=== PATIENT | female | born 1945 | race Caucasian/White ===

== ENCOUNTER 2019-12-01 10:49 | Emergency (ER) | payer MEDICARE, SELFPAY ==
--- NOTE | 2019-12-01 10:58 | ED.DENTAL ---
HPI - Dental/Oral General Chief complaint: Dental/Oral Stated complaint: Blisters inside mouth Time Seen by Provider: 12/01/19 10:58 Source: patient and RN notes reviewed History of Present Illness HPI Narrative: Patient is a 74-year-old female who presents the urgent care with complaints of blood blisters to the insides of both cheeks. Patient states that she does use an inhaler but has never had issues in the past with the rash or any oral sores. Patient states she noticed them last night. Denies of ever biting on her cheeks or clenching. States that she wears dentures and does remove them at night. No other acute complaints. No acute distress noted. Patient aware of the plan of care. Some parts of this dictation were generated by voice recognition software and may contain typographical and/or grammatical inaccuracies. Related Data Home Medications Medication Instructions Recorded Confirmed fluoxetine 20 mg PO DAILY 12/01/19 12/01/19 furosemide 40 mg PO DAILY 12/01/19 12/01/19 hydralazine 100 mg PO DAILY 12/01/19 12/01/19 levothyroxine 100 mcg PO DAILY 12/01/19 12/01/19 lisinopril 40 mg PO DAILY 12/01/19 12/01/19 methylphenidate HCl 20 mg PO DAILY 12/01/19 12/01/19 metoprolol succinate 100 mg PO DIRECTED 12/01/19 12/01/19 omeprazole 20 mg PO DIRECTED 12/01/19 12/01/19 potassium chloride 10 meq PO DAILY 12/01/19 12/01/19 warfarin 3 mg PO DAILY 12/01/19 12/01/19 Allergies Allergy/AdvReac Type Severity Reaction Status Date / Time codeine Allergy Intermediate Loss of Unverified 12/01/19 11:09 Consciousness Review of Systems Review of Systems: Narrative: CONSTITUTIONAL: Denies fever, chills, or sweats. EYES: Denies visual changes, redness, or discharge. ENT: Denies rhinorrhea, congestion, sore throat, or otalgia. ORAL: Reports of blood blisters to the inside of both cheeks CARDIOVASCULAR: Denies chest pain, palpitations, or edema. RESPIRATORY: Denies cough or dyspnea. GASTROINTESTINAL: Denies abdominal pain, nausea, vomiting, or diarrhea. GENITOURINARY: Denies dysuria or hematuria. SKIN: Denies rash or itching. MUSCULOSKELETAL: Denies back pain, joint pain, or myalgia. NEUROLOGIC: Denies headache, numbness, or weakness. All other systems reviewed are negative, except as documented in HPI. PMFSH Comments At the time of my signature, I reviewed and agree with the nursing past medical, surgical, social, and family history. There is no relevant family history pertinent to the patient complaint. Exam Narrative: Exam Narrative: GENERAL: This is a well-nourished, well-developed patient, in no apparent distress. HEAD: normocephalic, atraumatic. EYES: PERRL. Sclera clear/white. Vision is grossly intact. EARS: External ears normal NOSE: External nose normal with no obvious nasal discharge, nares without redness, no rhinorrhea. THROAT: Mucous membranes moist, posterior pharynx clear. Approximately 1 cm ecchymotic injury noted to the buccal aspect of the left cheek and 0.5 cm ecchymotic dried blood oral injury noted to the buccal aspect of the right cheek NECK: Neck supple SKIN: warm, intact with no suspicious lesions or rash, good texture and turgor. NEURO: awake, alert, and oriented to person, place and time. There were no obvious focal neurologic abnormalities. EXTREMITIES: No clubbing, cyanosis, or edema. Course Vital Signs Vital signs: Vital Signs Temperature 98.8 F 12/01/19 11:00 Pulse Rate 65 12/01/19 11:00 Respiratory Rate 18 12/01/19 11:00 Blood Pressure 135/45 L 12/01/19 11:00 Pulse Oximetry 98 12/01/19 11:00 Temperature 98.8 F 12/01/19 11:00 Pulse Rate 65 12/01/19 11:00 Respiratory Rate 18 12/01/19 11:00 Blood Pressure 135/45 L 12/01/19 11:00 Pulse Oximetry 98 12/01/19 11:00 Reviewed MDM - Dental/Oral MDM Narrative Medical decision making narrative: Advised the patient not to use any numbing gel to the insides of the cheek such as Orajel or [id number] numb
[2019-12-01 11:00] VITALS: BP 135/45; PULSE 65; RESP 18; TEMP 37.1; O2SAT 98
== END 2019-12-01 11:32 | disposition home or self-care (01) ==
PROVIDERS: Emergency Provider Nurse Practitioner Family
DX: S01.552A Open bite of oral cavity, initial encounter (principal); X58.XXXA Exposure to other specified factors, initial encounter; E78.00 Pure hypercholesterolemia, unspecified; I10 Essential (primary) hypertension; I34.1 Nonrheumatic mitral (valve) prolapse; I25.2 Old myocardial infarction; Z95.0 Presence of cardiac pacemaker; Z86.711 Personal history of pulmonary embolism; K21.9 Gastro-esophageal reflux disease without esophagitis; M19.90 Unspecified osteoarthritis, unspecified site; Z95.2 Presence of prosthetic heart valve
CPT/HCPCS: 99211; G0463

== ENCOUNTER 2020-11-04 11:59 | Emergency (ER) | payer MEDICARE, SELFPAY ==
--- NOTE | ~2020-11-04 | XR_ITS ---
EXAMINATION: XR tibia fibula LT 2V EXAM DATE: 11/04/2020 12:28 INDICATION: Fall Forwards On Leg X2 Week, proximal Anterior Swelling/Pain. TECHNIQUE: Left tibia/fibula frontal and lateral projections obtained and reviewed. There is no prio r study for comparison. FINDINGS: Left tibial and fibular shafts unremarkable. There are no acute fractures or dislocations identified. There is no subcutaneous gas. The soft tissue is unremarkable. There are no radiopaqu e foreign bodies. Large calcaneal posterior spur. IMPRESSION: No acute osseous findings. Reviewed, dictated and finalized at location A. IMPRESSION: No acute osseous findings.
[2020-11-04 12:06] VITALS: BP 148/51; PULSE 88; RESP 16; TEMP 36.3; O2SAT 99
--- NOTE | 2020-11-04 12:06 | ED.LOWEXIN ---
HPI - Extremity Injury (Lower) General Chief Complaint: Extremity Injury, Lower Stated Complaint: Pain and swollen left Leg Time Seen by Provider: 11/04/20 12:06 Source: patient and RN notes reviewed History of Present Illness HPI Narrative: Patient is a 75-year-old female who presents the urgent care with complaints of pain and swelling to the left lower leg. Patient states that she had back surgery on October 24 and on the she was walking down to a sunken living room at a family member's house in [facility]. Patient states she believes she fell onto the left leg. Denies of any loss of consciousness/hitting her head or any other injuries from the fall. Patient states that she does not have any pain to the left lower leg but does notice some increased bruising and redness. Patient states that her niece is a nurse practitioner and placed her on azithromycin yesterday. Patient denies of any fever, chills, nausea, vomiting. Patient is on Coumadin. States that her INR was within normal limits yesterday. No other acute complaints. No acute distress noted. Patient aware of the plan of care. Some parts of this dictation were generated by voice recognition software and may contain typographical and/or grammatical inaccuracies. Related Data Home Medications Medication Instructions Recorded Confirmed fluoxetine 20 mg PO DAILY 12/01/19 12/01/19 furosemide 40 mg PO DAILY 12/01/19 12/01/19 hydralazine 100 mg PO DAILY 12/01/19 12/01/19 levothyroxine 100 mcg PO DAILY 12/01/19 12/01/19 lisinopril 40 mg PO DAILY 12/01/19 12/01/19 methylphenidate HCl 20 mg PO DAILY 12/01/19 12/01/19 metoprolol succinate 100 mg PO DIRECTED 12/01/19 12/01/19 omeprazole 20 mg PO DIRECTED 12/01/19 12/01/19 potassium chloride 10 meq PO DAILY 12/01/19 12/01/19 warfarin 3 mg PO DAILY 12/01/19 12/01/19 azithromycin 250 mg PO DAILY 11/04/20 11/04/20 Allergies Allergy/AdvReac Type Severity Reaction Status Date / Time codeine Allergy Intermediate Loss of Verified 11/04/20 12:17 Consciousness Review of Systems Review of Systems: CONSTITUTIONAL: Denies fever, chills, or sweats. EYES: Denies visual changes, redness, or discharge. ENT: Denies rhinorrhea, congestion, sore throat, or otalgia. CARDIOVASCULAR: Denies chest pain, palpitations, or edema. RESPIRATORY: Denies cough or dyspnea. GASTROINTESTINAL: Denies abdominal pain, nausea, vomiting, or diarrhea. GENITOURINARY: Denies dysuria or hematuria. SKIN: Denies rash or itching. MUSCULOSKELETAL: Reports of swelling and bruising to the left lower leg NEUROLOGIC: Denies headache, numbness, or weakness. All other systems reviewed are negative, except as documented in HPI. PMFSH Comments At the time of my signature, I reviewed and agree with the nursing past medical, surgical, social, and family history. There is no relevant family history pertinent to the patient complaint. Exam Narrative: GENERAL: This is a well-nourished, well-developed patient, in no apparent distress. HEAD: normocephalic, atraumatic. EYES: PERRL. Sclera clear/white. Vision is grossly intact. EARS: External ears normal NOSE: External nose normal with no obvious nasal discharge, nares without redness, no rhinorrhea. THROAT: Mucous membranes moist NECK: Neck supple CARDIOVASCULAR: Regular rate and rhythm with murmur (parts of aortic valve replacement) RESPIRATORY: Clear to auscultation. Breath sounds equal bilaterally. No wheezes, rales, or rhonchi. SKIN: Firm hematoma to the tibial plateau of the left lower leg with ecchymosis extending from the hematoma to the left ankle. Warm, intact with no suspicious lesions or rash, good texture and turgor. NEURO: awake, alert, and oriented to person, place and time. There were no obvious focal neurologic abnormalities. EXTREMITIES: Mild nonpitting edema to the tibial plateau region of the left leg, notable hematoma. Positive strong left pedal pulse with capillary refill less than 2 seconds. Range of
[2020-11-04 12:17] VITALS: BP 148/51; PULSE 88; RESP 16; TEMP 36.3; O2SAT 99
== END 2020-11-04 12:47 | disposition home or self-care (01) ==
PROVIDERS: Emergency Provider Nurse Practitioner Family
DX: S80.12XA Contusion of left lower leg, initial encounter (principal); W01.0XXA Fall on same level from slipping, tripping and stumbling without subsequent striking against object, initial encounter; Z79.01 Long term (current) use of anticoagulants; I25.10 Atherosclerotic heart disease of native coronary artery without angina pectoris; E78.00 Pure hypercholesterolemia, unspecified; I10 Essential (primary) hypertension; I34.9 Nonrheumatic mitral valve disorder, unspecified; I25.2 Old myocardial infarction; Z95.0 Presence of cardiac pacemaker; Z95.2 Presence of prosthetic heart valve; Z86.711 Personal history of pulmonary embolism; K21.9 Gastro-esophageal reflux disease without esophagitis; M19.90 Unspecified osteoarthritis, unspecified site
CPT/HCPCS: 73590; 99213; G0463

== ENCOUNTER 2022-01-08 10:50 | Emergency (ER) | payer MEDICARE, SELFPAY ==
--- NOTE | ~2022-01-08 | XR_ITS ---
XR ankle LT min 3V DATE: 01/08/2022 11:34 INDICATION: Fall down steps on 01/06/2022. Lateral pain. TECHNIQUE: 4 views of left ankle COMPARISON: None FINDINGS: There is moderate lateral soft tissue swelling of the ankle. Osteopenia. No recent fracture or dislocation, periosteal reaction or bone destruction. Moderate plantar and very prominent posterior calcaneal enthesopathy. IMPRESSION: Lateral soft tissue swelling; no fracture or dislocation of the ankle or disruption of th e ankle mortise is detected Plantar and particularly prominent posterior calcaneal enthesopathy Reviewed, dictated and finalized at location A. LAB OPERATOR IMPRESSION: Lateral soft tissue swelling; no fracture or dislocation of the ank le or disruption of the ankle mortise is detected Plantar and particularly prominent posterior calcaneal enthesopathy
--- NOTE | 2022-01-08 10:53 | ED.LOWEXIN ---
HPI - Extremity Injury (Lower) General Chief Complaint: Fall Stated Complaint: Fall Injury/Left Ankle, Knee Time Seen by Provider: 01/08/22 10:53 Source: patient, family and RN notes reviewed History of Present Illness HPI Narrative: patient is a 76-year-old female who presents to urgent care with complaints of left ankle pain and swelling as well as left knee pain. Patient states that she rolled down the basement carpeted stairs on Saturday at her daughter's house. Patient denies any loss of consciousness or hitting her head. States her main concern is the pain in the left ankle and knee. Patient has been ambulating with her cane. Patient has been taking Tylenol for pain. Denies any back or hip pain. No other acute complaints. No acute distress noted. Patient aware of the plan of care. Some parts of this dictation were generated by voice recognition software and may contain typographical and/or grammatical inaccuracies. Related Data Home Medications Medication Instructions Recorded Confirmed fluoxetine 20 mg capsule 20 mg PO DAILY 12/01/19 01/08/22 furosemide 40 mg tablet 40 mg PO DAILY 12/01/19 01/08/22 hydralazine 100 mg tablet 100 mg PO DAILY 12/01/19 01/08/22 levothyroxine 100 mcg tablet 88 mcg PO DAILY 12/01/19 01/08/22 lisinopril 40 mg tablet 40 mg PO DAILY 12/01/19 01/08/22 methylphenidate HCl 20 mg tablet 20 mg PO DAILY 12/01/19 01/08/22 metoprolol succinate 100 mg 100 mg PO DIRECTED 12/01/19 01/08/22 tablet,extended release 24 hr omeprazole 20 mg capsule,delayed 20 mg PO DIRECTED 12/01/19 01/08/22 release potassium chloride 10 mEq 10 meq PO DAILY 12/01/19 01/08/22 tablet,extended release warfarin 3 mg tablet 3 mg PO DAILY 12/01/19 01/08/22 azithromycin 250 mg tablet 250 mg PO DAILY 11/04/20 01/08/22 Allergies Allergy/AdvReac Type Severity Reaction Status Date / Time codeine Allergy Intermediate Loss of Verified 01/08/22 11:11 Consciousness Review of Systems Review of Systems: CONSTITUTIONAL: Denies fever, chills, or sweats. EYES: Denies visual changes, redness, or discharge. ENT: Denies rhinorrhea, congestion, sore throat, or otalgia. CARDIOVASCULAR: Denies chest pain, palpitations, or edema. RESPIRATORY: Denies cough or dyspnea. GASTROINTESTINAL: Denies abdominal pain, nausea, vomiting, or diarrhea. GENITOURINARY: Denies dysuria or hematuria. SKIN: Denies rash or itching. MUSCULOSKELETAL: Reports of left knee and left ankle pain with swelling NEUROLOGIC: Denies headache, numbness, or weakness. All other systems reviewed are negative, except as documented in HPI. PMFSH Comments At the time of my signature, I reviewed and agree with the nursing past medical, surgical, social, and family history. There is no relevant family history pertinent to the patient complaint. Exam Narrative: GENERAL: This is a well-nourished, well-developed patient, in no apparent distress. HEAD: normocephalic, atraumatic. EYES: PERRL. Sclera clear/white. Vision is grossly intact. EARS: External ears normal NOSE: External nose normal with no obvious nasal discharge, nares without redness, no rhinorrhea. THROAT: Mucous membranes moist SKIN: warm, intact with no suspicious lesions or rash, good texture and turgor. NEURO: awake, alert, and oriented to person, place and time. There were no obvious focal neurologic abnormalities. EXTREMITIES: range of motion left lower extremity within normal limits with moderate exacerbated pain on ambulation to the left ankle with mild left lateral malleolus edema without ecchymosis or erythema. Range of motion to the left knee within normal limits without any obvious ecchymosis, erythema or edema. Positive strong left pedal pulse with capillary refill less than 2 seconds. Course Course Level of Care: Express Care Visit Vital Signs Vital signs: Vital Signs Temperature 98.5 F 01/08/22 11:03 Pulse Rate 66 01/08/22 11:03 Respiratory Rate 16 01/08/22 11:03
[2022-01-08 11:03] VITALS: BP 144/118; PULSE 66; RESP 16; TEMP 36.9; O2SAT 100
[2022-01-08 12:06] VITALS: BP 136/47; PULSE 84; O2SAT 97
== END 2022-01-08 12:06 | disposition home or self-care (01) ==
PROVIDERS: Emergency Provider Nurse Practitioner Family
DX: S93.402A Sprain of unspecified ligament of left ankle, initial encounter (principal); W10.9XXA Fall (on) (from) unspecified stairs and steps, initial encounter; I25.10 Atherosclerotic heart disease of native coronary artery without angina pectoris; E78.00 Pure hypercholesterolemia, unspecified; I10 Essential (primary) hypertension; I34.1 Nonrheumatic mitral (valve) prolapse; I25.2 Old myocardial infarction; Z95.0 Presence of cardiac pacemaker; Z95.2 Presence of prosthetic heart valve; Z86.711 Personal history of pulmonary embolism; K21.9 Gastro-esophageal reflux disease without esophagitis; M19.90 Unspecified osteoarthritis, unspecified site
CPT/HCPCS: 73610; 99213; G0463

== ENCOUNTER 2022-02-21 11:11 | Emergency (ER) | payer MEDICARE, SELFPAY ==
--- NOTE | 2022-02-21 11:16 | ED.SKABFB ---
HPI - Skin/Abscess/Foreign Bdy General Chief complaint: Skin/Abscess/Foreign Body Stated complaint: Left Knee/Skin Problem Time Seen by Provider: 02/21/22 11:16 Source: patient and RN notes reviewed History of Present Illness HPI narrative: patient is a 76-year-old female who presents to urgent care with complaints of an itchy blistering rash behind the left knee and on the left ankle. Patient states she noticed it 2 days ago. Patient has not been anything [id number] for her symptoms. No other acute complaints. No acute distress noted. Patient aware of the plan of care. Some parts of this dictation were generated by voice recognition software and may contain typographical and/or grammatical inaccuracies. Related Data Home Medications Medication Instructions Recorded Confirmed fluoxetine 20 mg capsule 20 mg PO DAILY 12/01/19 02/21/22 furosemide 40 mg tablet 40 mg PO DAILY 12/01/19 02/21/22 hydralazine 100 mg tablet 100 mg PO DAILY 12/01/19 02/21/22 levothyroxine 100 mcg tablet 88 mcg PO DAILY 12/01/19 02/21/22 lisinopril 40 mg tablet 40 mg PO DAILY 12/01/19 02/21/22 methylphenidate HCl 20 mg tablet 20 mg PO DAILY 12/01/19 02/21/22 metoprolol succinate 100 mg 100 mg PO DIRECTED 12/01/19 02/21/22 tablet,extended release 24 hr omeprazole 20 mg capsule,delayed 20 mg PO DIRECTED 12/01/19 02/21/22 release potassium chloride 10 mEq 10 meq PO DAILY 12/01/19 02/21/22 tablet,extended release warfarin 3 mg tablet 3 mg PO DAILY 12/01/19 02/21/22 azithromycin 250 mg tablet 250 mg PO DAILY 11/04/20 01/08/22 Allergies Allergy/AdvReac Type Severity Reaction Status Date / Time codeine Allergy Intermediate Loss of Verified 02/21/22 11:20 Consciousness Review of Systems Review of Systems: CONSTITUTIONAL: Denies fever, chills, or sweats. EYES: Denies visual changes, redness, or discharge. ENT: Denies rhinorrhea, congestion, sore throat, or otalgia. CARDIOVASCULAR: Denies chest pain, palpitations, or edema. RESPIRATORY: Denies cough or dyspnea. GASTROINTESTINAL: Denies abdominal pain, nausea, vomiting, or diarrhea. GENITOURINARY: Denies dysuria or hematuria. SKIN: Reports of a blistery itchy painful rash on left knee MUSCULOSKELETAL: Denies back pain, joint pain, or myalgia. NEUROLOGIC: Denies headache, numbness, or weakness. All other systems reviewed are negative, except as documented in HPI. PMFSH Comments At the time of my signature, I reviewed and agree with the nursing past medical, surgical, social, and family history. There is no relevant family history pertinent to the patient complaint. Exam Narrative: GENERAL: This is a well-nourished, well-developed patient, in no apparent distress. HEAD: normocephalic, atraumatic. EYES: PERRL. Sclera clear/white. Vision is grossly intact. EARS: External ears normal NOSE: External nose normal with no obvious nasal discharge, nares without redness, no rhinorrhea. THROAT: Mucous membranes moist NECK: Neck supple SKIN: vesicular erythemic pruritic dermatitis to the posterior left knee and medial left malleolus NEURO: awake, alert, and oriented to person, place and time. There were no obvious focal neurologic abnormalities. EXTREMITIES: No clubbing, cyanosis, or edema. Course Course Level of Care: Express Care Visit Vital Signs Vital signs: Vital Signs Temperature 97.6 F 02/21/22 11:28 Pulse Rate 65 02/21/22 11:28 Respiratory Rate 16 02/21/22 11:28 Blood Pressure 92/53 L 02/21/22 11:28 Pulse Oximetry 98 02/21/22 11:28 Oxygen Delivery Room Air 02/21/22 11:28 Temperature 97.6 F 02/21/22 11:30 Pulse Rate 65 02/21/22 11:30 Respiratory Rate 16 02/21/22 11:30 Blood Pressure 92/53 L 02/21/22 11:30 Pulse Oximetry 98 02/21/22 11:30 Oxygen Delivery Room Air 02/21/22 11:30 reviewed MDM - Skin/Abscess/Foreign Bdy MDM Narrative Medical decision making narrative: explained to the patient that she has shingles.
[2022-02-21 11:28] VITALS: BP 92/53; PULSE 65; RESP 16; TEMP 36.4; O2SAT 98
[2022-02-21 11:30] VITALS: BP 92/53; PULSE 65; RESP 16; TEMP 36.4; O2SAT 98
== END 2022-02-21 11:41 | disposition home or self-care (01) ==
PROVIDERS: Emergency Provider Nurse Practitioner Family
DX: B02.9 Zoster without complications (principal)
CPT/HCPCS: 99213; G0463

== ENCOUNTER 2023-02-02 11:37 | Emergency (ER) | payer MEDICARE, SELFPAY ==
[2023-02-02 11:43] VITALS: BP 90/33; PULSE 77; RESP 20; TEMP 35.5; O2SAT 93
[2023-02-02 11:51] VITALS: BP 93/31
--- NOTE | 2023-02-02 12:04 | ED.GENADULT ---
HPI - General Adult General Chief complaint: Shortness of Breath/Dyspnea Stated complaint: Shortness Of Breath/Diarrhea Source: patient, RN notes reviewed and old records reviewed Mode of arrival: ambulatory Limitations: no limitations History of Present Illness HPI narrative: 77-year-old female presents to [facility] with complaints cough congestion myalgia for 7 days, with diarrhea this started 5 days ago. Patient denies abdominal pain, patient denies chest pain. Patient noted to be hypotensive in triage. Patient states has diarrhea after every meal. patient states to COVID test on that was negative MD complaint: diarrhea Related Data Home Medications Medication Instructions Recorded Confirmed fluoxetine 20 mg capsule 20 mg PO DAILY 12/01/19 02/02/23 furosemide 40 mg tablet 20 mg PO DAILY 12/01/19 02/02/23 hydralazine 100 mg tablet 100 mg PO BID 12/01/19 02/02/23 methylphenidate HCl 20 mg tablet 20 mg PO BID 12/01/19 02/02/23 metoprolol succinate 100 mg 100 mg PO DAILY 12/01/19 02/02/23 tablet,extended release 24 hr omeprazole 20 mg capsule,delayed 20 mg PO BID 12/01/19 02/02/23 release potassium chloride 10 mEq 20 meq PO DAILY 12/01/19 02/02/23 tablet,extended release warfarin 3 mg tablet 3 mg PO DAILY 12/01/19 02/02/23 acetaminophen 325 mg tablet 650 mg PO Q6H PRN Pain (Scale 02/02/23 02/02/23 Score 7-10) albuterol sulfate 90 mcg/actuation 2 puff inhalation QID PRN 02/02/23 02/02/23 aerosol inhaler Shortness Of Breath Or Wheezing diclofenac sodium 1 % topical gel 2 g topical DAILY 02/02/23 02/02/23 levothyroxine 88 mcg tablet 88 mcg PO DAILY 02/02/23 02/02/23 vitamins A,C,K-pbgl-onlufa 2,148 2 tablet PO DAILY 02/02/23 02/02/23 mcg-113 mg-45 mg-17.4 mg tablet (PreserVision AREDS) Allergies Allergy/AdvReac Type Severity Reaction Status Date / Time codeine Allergy Severe Loss of Verified 02/02/23 11:59 Consciousness Review of Systems Constitutional: Constitutional: Reports as per HPI and Reports body ache(s) Eyes: Eyes: Reports no additional eye complaints ENT: Reports as per HPI, Reports nasal congestion and Reports nasal discharge Cardiovascular: Cardiovascular: Reports no additional cardiovascular complaints Respiratory: Respiratory: Reports as per HPI, Reports chest congestion, Reports cough and Reports dyspnea Gastrointestinal: Gastrointestinal: Reports as per HPI, Reports diarrhea, Reports loose stools, Denies nausea and Denies vomiting Neurologic: Reports system reviewed and no additional complaints, except as documented PMFSH Comments At the time of my signature, I reviewed and agree with the nursing past medical, surgical, social, and family history. There is no relevant family history pertinent to the patient complaint. Exam Const: General: cooperative, healthy appearing, no acute distress and well nourished Nutritional Appearance: well nourished Orientation/consciousness: patient oriented x3 Limitations: no limitations HENMT: Head: normal to inspection and normocephalic Ears: external ears normal, TM's normal bilaterally, mastoids normal and Abnormal EAC present Face/Nose/Sinus: normal facial exam Face and sinus: normal facial exam Mouth: Yes Normal oral and palatal mucosa present, Yes oropharynx normal and Yes moist mucous membranes Throat: posterior oropharynx normal, tonsils normal, uvula midline and no uvular edema Eyes: General: appearance normal, both eyes and all related structures Sclera: sclerae normal Pupils: Equal, round and reactive pupils present Resp: Effort & Inspection: normal respiratory effort, able to speak in complete sentences, no audible wheezes, no cough, no respiratory distress and no retractions Auscultation: clear to auscultation bilaterally, no crackles, no rales, no rhonchi and no wheezes Cardio: Rate: regular rate Rhythm: regular rhythm Skin: General skin exam: normal color and no rashes or lesions noted Neuro: General: uzair
== END 2023-02-02 12:07 | disposition short-term general hospital (02) ==
PROVIDERS: Emergency Provider Registered Nurse
DX: I95.9 Hypotension, unspecified (principal); R06.02 Shortness of breath; R19.7 Diarrhea, unspecified; I25.10 Atherosclerotic heart disease of native coronary artery without angina pectoris; E78.00 Pure hypercholesterolemia, unspecified; I10 Essential (primary) hypertension; I34.1 Nonrheumatic mitral (valve) prolapse; I25.2 Old myocardial infarction; Z95.0 Presence of cardiac pacemaker; Z86.711 Personal history of pulmonary embolism; K21.9 Gastro-esophageal reflux disease without esophagitis; M19.90 Unspecified osteoarthritis, unspecified site
CPT/HCPCS: 99212; G0463

== ENCOUNTER 2023-04-08 10:39 | Emergency (ER) | payer MEDICARE, SELFPAY ==
--- NOTE | ~2023-04-08 | XR_ITS ---
Right foot Technique: AP, oblique, and lateral views were obtained. Clinical History: Trauma Findings: No acute fracture or dislocation is seen. Osseous alignment is anatomic. Joint spaces are p reserved without erosive or degenerative change. Soft tissues are unremarkable. Impression: Unremarkable right foot radiographs. Reviewed, dictated and finalized at location . H MANAGER Impression: Unremarkable right foot radiographs.
[2023-04-08 10:44] VITALS: BP 147/77; PULSE 86; RESP 16; TEMP 36.8; O2SAT 99
[2023-04-08] MEDS: ACETAMINOPHEN 325 MG TABLET 650 MG PO (12:00)
[2023-04-08 12:01] VITALS: BP 137/67; PULSE 82; RESP 18; O2SAT 100
[2023-04-08 14:25] VITALS: BP 135/70; PULSE 80; RESP 18; TEMP 36.6; O2SAT 100
--- NOTE | 2023-04-08 15:02 | ED.GENADULT ---
HPI - General Adult General Chief complaint: Extremity Injury, Lower Stated complaint: fall, b/l foot pain Time Seen by Provider: 04/08/23 11:37 History of Present Illness HPI narrative: Patient is an 78-year-old female who presents ER after falling yesterday and having foot pain and swelling today. Pain and swelling around the right foot. Has pain with trying to bear weight. She got up to receive an [employer] delivery last night when she got tangled up in her blankets and fell. She did not strike her head or lose consciousness. She does take warfarin. No numbness or tingling to the foot. Related Data Home Medications Medication Instructions Recorded Confirmed fluoxetine 20 mg capsule 20 mg PO DAILY 12/01/19 02/02/23 furosemide 40 mg tablet 20 mg PO DAILY 12/01/19 02/02/23 hydralazine 100 mg tablet 100 mg PO BID 12/01/19 02/02/23 methylphenidate HCl 20 mg tablet 20 mg PO BID 12/01/19 02/02/23 metoprolol succinate 100 mg 100 mg PO DAILY 12/01/19 02/02/23 tablet,extended release 24 hr omeprazole 20 mg capsule,delayed 20 mg PO BID 12/01/19 02/02/23 release potassium chloride 10 mEq 20 meq PO DAILY 12/01/19 02/02/23 tablet,extended release warfarin 3 mg tablet 3 mg PO DAILY 12/01/19 02/02/23 acetaminophen 325 mg tablet 650 mg PO Q6H PRN Pain (Scale 02/02/23 02/02/23 Score 7-10) albuterol sulfate 90 mcg/actuation 2 puff inhalation QID PRN 02/02/23 02/02/23 aerosol inhaler Shortness Of Breath Or Wheezing diclofenac sodium 1 % topical gel 2 g topical DAILY 02/02/23 02/02/23 levothyroxine 88 mcg tablet 88 mcg PO DAILY 02/02/23 02/02/23 vitamins A,C,U-[id number]-[id number] 2,148 2 tablet PO DAILY 02/02/23 02/02/23 mcg-113 mg-45 mg-17.4 mg tablet (PreserVision AREDS) Allergies Allergy/AdvReac Type Severity Reaction Status Date / Time codeine Allergy Severe Loss of Verified 04/08/23 11:13 Consciousness Review of Systems Musculoskeletal: Comments: Right foot pain and swelling. Integumentary/Breasts: Skin/Breast: Denies rash and Denies skin ulcer Neurologic: Denies focal weakness and Denies numbness PMFSH Past Medical History Medical History (Updated 04/08/23 @ 19:42 by Darrius Perales MD) GERD (gastroesophageal reflux disease) Hypertension Hypothyroidism Exam Narrative: GENERAL: Well-appearing, well-nourished, and in no acute distress. HEAD: Normocephalic, atraumatic. ENT: Mucous membranes moist. CHEST: Clear to auscultation. No respiratory distress. HEART: Regular rate and rhythm. Normal peripheral pulses. EXTREMITIES: Normal range of motion. 1+ edema right foot compared to left. Mild lateral right foot tenderness w/o bruising. SKIN: Warm, dry, no rash. NEURO: Alert and oriented x3. PSYCH: Normal mood and affect. Course Course Emergency Course: patient informed results. Discharge home. Vital Signs Vital signs: Vital Signs Temperature 98.2 F 04/08/23 10:44 Pulse Rate 86 04/08/23 10:44 Respiratory Rate 16 04/08/23 10:44 Blood Pressure 147/77 H 04/08/23 10:44 Pulse Oximetry 99 04/08/23 10:44 Temperature 98 F 04/08/23 15:18 Pulse Rate 80 04/08/23 15:18 Respiratory Rate 18 04/08/23 15:18 Blood Pressure 143/109 H 04/08/23 15:18 Pulse Oximetry 98 04/08/23 15:18 Medical Decision Making Vital Signs Vital Signs: Vital Signs Temperature 98.2 F 04/08/23 10:44 Pulse Rate 86 04/08/23 10:44 Respiratory Rate 16 04/08/23 10:44 Blood Pressure 147/77 H 04/08/23 10:44 Pulse Oximetry 99 04/08/23 10:44 Temperature 98 F 04/08/23 15:18 Pulse Rate 80 04/08/23 15:18 Respiratory Rate 18 04/08/23 15:18 Blood Pressure 143/109 H 04/08/23 15:18 Pulse Oximetry 98 04/08/23 15:18 Imaging Data Radiologist's impression: ITS Impressions Foot X-Ray 04/08/23 12:28 Impression: Unremarkable right foot radiographs. Discharge Plan Discharge Clinical Impression: Foot sprain Patie
[2023-04-08 15:18] VITALS: BP 143/109; PULSE 80; RESP 18; TEMP 36.6; O2SAT 98
--- NOTE | 2023-04-08 15:47 | PC.NURSE ---
Son, Campbell called, coming in approx 30 min to pick pt up. Daughter notified per pt request
== END 2023-04-08 15:52 | disposition home or self-care (01) ==
PROVIDERS: Emergency Provider Emergency Medicine
DX: S93.601A Unspecified sprain of right foot, initial encounter (principal); I10 Essential (primary) hypertension; E03.9 Hypothyroidism, unspecified; K21.9 Gastro-esophageal reflux disease without esophagitis; Z79.01 Long term (current) use of anticoagulants; W01.0XXA Fall on same level from slipping, tripping and stumbling without subsequent striking against object, initial encounter
CPT/HCPCS: 73630; 99283; A9270